=== PATIENT | female | born 1930 | race Caucasian/White ===

== ENCOUNTER 2017-06-16 14:12 | Emergency (ER) | payer MEDICARE ==
[2017-06-16] MEDS ORDERED: Ondansetron HCl/PF 4 MG/2 ML Vial ONE (15:14)
--- NOTE | 2017-06-16 15:20 | CT ---
CT OF THE CERVICAL SPINE: DATE: 06/16/17. PROVIDED CLINICAL HISTORY: Acute on chronic neck pain. FINDINGS: There is no evidence for a fracture or traumatic subluxation. Advanced multilevel cervical degenera tive changes are seen with areas of foraminal narrowing up to severe in degree. Potentially severe central canal stenosis at C6-7 is noted. No prevertebral soft tissue swelling apparent. The visual ized lung apices are free of significant opacity. No concerning lytic or blastic bone lesions are seen. IMPRESSION: 1. No evidence for a fracture or traumatic subluxation. 2. Advanced multilevel cervical degenerative change. POS: [facility]
--- NOTE | 2017-06-16 15:23 | CT ---
CT OF THE LUMBAR SPINE WITHOUT CONTRAST: Date: 06/16/17 COMPARISON: None. HISTORY: Lumbar spine. Prior spinal surgery. TECHNIQUE: Multiple contiguous axial images were obtained in a CT of the lumbar spine without contrast. Sagitta l and coronal reformats were performed. FINDINGS: The intervertebral discs are narrowed throughout the lumbar spine. Vacuum phenomenon is seen at mult iple levels. The vertebral bodies demonstrate normal height without fracture or subluxation. The pat ient is status posterior fusion of L4 through S1 with bilateral pedicle screws. No perihardware luce ncy is seen surrounding the hardware. Atherosclerotic calcifications are seen in the aorta. The other prevertebral soft tissues are unrema rkable. T12-L1: A small disc osteophyte complex is seen. Mild bilateral posterior disc arthrosis. No bony narrowing of the neural foramina or central canal. L1-2: A small disc osteophyte complex is seen. No posterior facet arthrosis. No bony narrowing of the cent ral canal. Moderate bony narrowing of the bilateral neural foramina. L2-3: A moderate disc osteophyte complex is seen. Mild bilateral posterior facet arthrosis. No bony narrow ing of the central canal. Mild right and moderate to severe left neural foraminal stenosis. L3-4: A small disc osteophyte complex is seen. Moderate bilateral posterior facet arthrosis. Mild bony jessica rowing of the central canal. There is mild right neural foraminal stenosis. No left neural foraminal stenosis. L4-5: This level is fused. Moderate bilateral posterior facet arthrosis. No bony narrowing of the central canal. Moderate bilateral neural foraminal stenosis. L5-S1: A small disc osteophyte complex is seen. Moderate bilateral posterior facet arthrosis. This level is fused. No bony narrowing of the central canal. Moderate bilateral neural foraminal stenosis. IMPRESSION: Degenerative changes of the lumbar spine as above. POS: [facility]
[2017-06-16] MEDS ORDERED: Dexamethasone 4 mg/ml Vial ONE (15:50)
== END 2017-06-16 16:07 | disposition home or self-care (01) ==
LOC: ERS 14:12
DX: M54.2 Cervicalgia (principal); M54.5 Low back pain; G89.29 Other chronic pain; E03.9 Hypothyroidism, unspecified; E78.5 Hyperlipidemia, unspecified; I10 Essential (primary) hypertension; F41.9 Anxiety disorder, unspecified; F32.9 Major depressive disorder, single episode, unspecified; Z79.82 Long term (current) use of aspirin; Z79.891 Long term (current) use of opiate analgesic; Z79.899 Other long term (current) drug therapy
CPT/HCPCS: 72125; 72131; 96374; 96375; J1100; J2270; J2405

== ENCOUNTER 2017-08-08 12:52 | Emergency (ER) | payer MEDICARE ==
[2017-08-08 13:49] LABS: #Basophils 0.1 thou/uL (0.0-0.2); #Eosinphils 0.2 thou/uL (0.0-0.7); #Lymphocytes 2.5 thou/uL (1.20-3.40); #Monocytes 0.7 thou/uL (0.11-0.59); #Neutrophils 7.7 thou/uL (1.40-6.50); %Basophils 0.8 % (0.0-1.0); %Eosinophils 1.8 % (0.0-10.0); %Lymphocytes 22.4 % (21.0-51.0); %Monocytes 6.6 % (0.0-10.0); Hematocrit 40.8 % (36.0-47.0); Mean Platelet Volume 7.3 fL (7.4-10.4); White Blood Cell (WBC) Count 11.2 thou/uL (4.8-10.8)
[2017-08-08 14:16] LABS: ALT (SGPT) 12 U/L (8-55); AST (SGOT) 15 U/L (5-34); Acetaminophen Less than 6.0 mcg/mL (10.0-30.0); Alkaline Phosphatase 86 U/L (40-150); Anion Gap 14 mmol/L (10-20); BUN (Urea Nitrogen) 18 mg/dL (9.8-20.1); Bilirubin, Total 0.5 mg/dL (0.2-1.2); Calc. Creatinine Clearance 0 mL/min (70-130); Calcium 9.6 mg/dL (7.8-10.44); Carbon Dioxide 26 mmol/L (23-31); Chloride 101 mmol/L (98-107); Estimated GFR-MDRD 65; Globulin 2.9 g/dL (2.4-3.5); Protein, Total 7.2 g/dL (6.0-8.3); Salicylate Less than 8.0 mg/dL (15.0-30.0)
[2017-08-08 17:39] LABS: Amphetamine Not Detected (NotDetected); Methadone Not Detected (NotDetected); Methamphetamine Not Detected (NotDetected)
[2017-08-08] MEDS ORDERED: Lorazepam 1 MG TAB ONE ×2 (17:51→21:43)
[2017-08-08 18:51] LABS: Bilirubin Negative (Negative); Blood, Urine Negative (Negative); Glucose, Urine (Dipstick) Negative (Negative); Ketone, Urine Negative (Negative); Nitrite Negative (Negative); Protein, Urine (Dipstick) Trace mg/dL (Neg-Trace)
[2017-08-08 18:53] LABS: Bacteria/HPF 4+ HPF (None Seen); Hyaline Casts/LPF 4-6 HYALINE CAST LPF (0-3 Hyaline); RBC/HPF 0-3 HPF (0-3); Squamous Epithelial 0-3 HPF (0-3)
[2017-08-08] MEDS ORDERED: Acetaminophen/Codeine 30-300mg Tablet ONE (21:43)
--- NOTE | 2017-08-09 13:27 | EKG ---
Test Reason : Blood Pressure : / mmHG Vent. Rate : 071 BPM Atrial Rate : 071 BPM P-R Int : 160 ms QRS Dur : 096 ms QT Int : 390 ms P-R-T Axes : 064 -46 126 degrees QTc Int : 423 ms Normal sinus rhythm Left anterior fascicular block Nonspecific T wave abnormality Abnormal ECG Confirmed by AKILAH JUAREZ ([id number]), loan expeditor TARAN PERRY ([id number] on 08/09/2017 1:27:21 PM Referred By: Confirmed By:AKILAH JUAREZ
== END 2017-08-09 01:55 ==
LOC: ERS 12:52
DX: F41.9 Anxiety disorder, unspecified (principal); R45.851 Suicidal ideations; Z86.711 Personal history of pulmonary embolism; E03.9 Hypothyroidism, unspecified; E78.5 Hyperlipidemia, unspecified; I10 Essential (primary) hypertension; F32.9 Major depressive disorder, single episode, unspecified; Z79.82 Long term (current) use of aspirin; Z79.899 Other long term (current) drug therapy
CPT/HCPCS: 36415; 80053; 80306; 80307; 81003; 81015; 82550; 84443; 85025; 87086; 93005

== ENCOUNTER 2017-10-17 14:34 | Emergency (ER) | payer MEDICARE ==
[~2017-10-17 14:34] MED LIST: ISOVUE-370 76%-LOCM 1 ML ONE
[2017-10-17 15:12] LABS: #Basophils 0.1 thou/uL (0.0-0.2); #Eosinphils 0.2 thou/uL (0.0-0.7); #Lymphocytes 2.5 thou/uL (1.20-3.40); %Eosinophils 2.3 % (0.0-10.0); %Lymphocytes 27.8 % (21.0-51.0); %Monocytes 11.8 % (0.0-10.0); %Neutrophils 57.2 % (42.0-75.0); Hemoglobin 13.1 g/dL (12.0-16.0); Mean Corpuscular HGB CONC 32.4 g/dL (32.0-36.0); Mean Corpuscular Hemoglobin 30.3 pg (27.0-31.0); Mean Corpuscular Volume 93.6 fl (81.0-99.0); Mean Platelet Volume 7.1 fL (7.4-10.4); Platelet Count 253 thou/uL (130-400); RBC Distribution Width 15.7 % (11.5-14.5); Red Blood Cell (RBC) Count 4.33 mill/uL (4.20-5.40); White Blood Cell (WBC) Count 8.8 thou/uL (4.8-10.8)
--- NOTE | 2017-10-17 15:29 | CT ---
CT OF THE BRAIN WITHOUT CONTRAST: Date: 10/17/17 INDICATION: History of syncope and mild dizziness. COMPARISON: Prior exam dated 06/17/16. FINDINGS: No acute infarct, hemorrhage, or hydrocephalus is present. Septum pellucidum and third ventricle are midline. Mild generalized cerebral atrophy is similar. Mild chronic small vessel which matter ischemi c change is similar appearing. Mastoid air cells and paranasal sinuses are clear. IMPRESSION: No acute intracranial abnormality. POS: [facility]
[2017-10-17 15:33] LABS: ALT (SGPT) 10 U/L (8-55); AST (SGOT) 14 U/L (5-34); Albumin 4.1 g/dL (3.4-4.8); Alkaline Phosphatase 83 U/L (40-150); Anion Gap 12 mmol/L (10-20); BUN (Urea Nitrogen) 15 mg/dL (9.8-20.1); Bilirubin, Total 0.3 mg/dL (0.2-1.2); CK (CPK) 39 U/L (29-168); Calc. Creatinine Clearance 0 mL/min (70-130); Calcium 9.5 mg/dL (7.8-10.44); Carbon Dioxide 31 mmol/L (23-31); Chloride 98 mmol/L (98-107); Estimated GFR-MDRD 48; Globulin 2.6 g/dL (2.4-3.5); Glucose 147 mg/dL (83-110); Potassium 3.5 mmol/L (3.5-5.1); Protein, Total 6.7 g/dL (6.0-8.3); Sodium 137 mmol/L (136-145)
--- NOTE | 2017-10-17 15:33 | RAD ---
UPRIGHT PORTABLE CHEST 1 VIEW: Date: 10/17/17 HISTORY: 87-year-old female with history of syncope and collapse. COMPARISON: 12/10/16. FINDINGS: There is cardiomegaly. Evidence for at least a moderate size hiatal hernia. No evidence for pneumonia . Minimal biapical pleural thickening. IMPRESSION: Stable appearing cardiomegaly and at least moderate size hiatal hernia, as well as some stable scatte red chronic lung changes. No confluent pneumonia or other acute process. POS: [facility]
[2017-10-17 15:36] LABS: CKMB 0.8 ng/mL (0-6.6); Troponin I Less than 0.010 ng/mL (< 0.028)
--- NOTE | 2017-10-17 17:44 | CT ---
CTA THORAX UTILIZING IV CONTRAST WITH PE PROTOCOL AND 3D REFORMATTED IMAGING: INDICATION: Syncopal episode and collapsed at the [facility]. COMPARISON: Prior exam dated 11/22/16. FINDINGS: No central or segmental pulmonary defect is evident. There is a large hiatal hernia. There is bibasil ar atelectasis. No confluent air space opacity, pleural effusion or pneumothorax is evident. No acute osseous abnormality is evident. Stable hypodensity within the posterior spleen, likely refle cts splenic cyst. IMPRESSION: 1. No central or segmental pulmonary embolus. 2. No acute cardiopulmonary abnormality. 3. Prominent hiatal hernia with bibasilar atelectasis. POS: [facility]
== END 2017-10-17 17:10 | disposition home or self-care (01) ==
LOC: ERS 14:34
DX: R55 Syncope and collapse (principal); G89.29 Other chronic pain; E03.9 Hypothyroidism, unspecified; E78.5 Hyperlipidemia, unspecified; I10 Essential (primary) hypertension; F41.9 Anxiety disorder, unspecified; F32.9 Major depressive disorder, single episode, unspecified; K21.9 Gastro-esophageal reflux disease without esophagitis; Z79.899 Other long term (current) drug therapy
CPT/HCPCS: 36415; 70450; 71045; 71275; 80053; 82553; 84484; 85025; 85379; 93005; 94760

== ENCOUNTER 2018-02-06 14:25 | Outpatient (CLI) | payer MEDICARE | END 2018-02-06 14:26 | disposition home or self-care (01) | LOC: BICULT 14:25 | PROVIDERS: ATTEND Urology | DX: N39.0 Urinary tract infection, site not specified (principal); N39.41 Urge incontinence; N28.1 Cyst of kidney, acquired | CPT/HCPCS: 76770 ==